=== PATIENT | female | born 1940 | race Caucasian/White ===

== ENCOUNTER 2018-10-10 22:16 | Emergency (ER) | payer MEDICARE ==
--- NOTE | 2018-10-10 22:34 | ED Physician Documentation ---
PD HPI OPHTHO - Stated complaint Stated Complaint: SOA/ANXIETY - Chief complaint Chief Complaint: General - History obtained from History obtained from: Patient - History of Present Illness Timing - onset: How many hours ago (1-2), Today Timing - duration: Hours (1-2) Timing - details: Abrupt onset (she was gardening and weeding and noted some feeling of irritation right eye. Considered that she got something in it. Irrigated eye with water. Has increasing redness and irritation of eye, then to left as well. [place] some dyspnea but was anxious too. No edema in throat nor tongue. No rash generally. Has not had URI symptoms.), Constant Location: Both (initially the right, but then both) Quality / character: Burning Associated symptoms: Redness, Tearing. No: Swelling, Discharge, FB sensation, Photophobia, Decreased vision Contributing factors: Other (not aware of chemical exposure but was doing gardening (no chemicals, sprays).). No: Wears contacts, Work related Review of Systems Constitutional: denies: Fever, Chills, Myalgias Eyes: reports: Irritation. denies: Photophobia, Discharge Nose: denies: Rhinorrhea / runny nose, Congestion Throat: denies: Sore throat Cardiac: denies: Chest pain / pressure Respiratory: reports: Dyspnea. denies: Cough, Wheezing GI: denies: Nausea, Vomiting Neurologic: denies: Headache PD PAST MEDICAL HISTORY - Past Medical History Cardiovascular: None Respiratory: None Neuro: None HEENT: None - Present Medications Home Medications: Ambulatory Orders Medication Instructions Recorded Confirmed Atorvastatin [Lipitor] 10 mg PO DAILY 10/10/18 10/10/18 Diclofenac Sodium 3 drops OP QID #1 bottle 10/10/18 Methotrexate 10/10/18 Prednisone 5 mg PO DAILY 10/10/18 10/10/18 - Allergies Allergies/Adverse Reactions: Allergies Allergy/AdvReac Type Severity Reaction Status Date / Time iodine AdvReac Hives Verified 10/10/18 22:26 PD ED PE NORMAL - Vitals Vital signs reviewed: Yes - General General: Alert and oriented X 3, Well developed/nourished, Other (very distressed due to eye pain. ) - HEENT HEENT: PERRL (very red/moderate swelling both lower conjunctiva. No FB seen. No discharge per se but is watering. ), EOMI - Neck Neck: Supple, no meningeal sign, No adenopathy - Cardiac Cardiac: RRR, No murmur - Respiratory Respiratory: Clear bilaterally - Derm Derm: Normal color, Warm and dry - Neuro Neuro: Alert and oriented X 3, No motor deficit, Normal speech Results - Vitals Vitals: Vital Signs - 24 hr 10/10/18 10/10/18 22:21 23:26 Temperature 37.5 C Heart Rate 75 78 Respiratory 16 16 Rate Blood Pressure 189/80 H 160/80 H O2 Saturation 98 100 Oxygen O2 Source Room air Departure - Departure Disposition: 01 Home, Self Care Clinical Impression: Conjunctivitis, acute Qualifiers: Acute conjunctivitis type: atopic Laterality: bilateral Qualified Code(s): H10.13 - Acute atopic conjunctivitis, bilateral Condition: Stable Record reviewed to determine appropriate education?: Yes Instructions: ED Allergic Conjunctivitis Prescriptions: Diclofenac Sodium 3 drops OP QID #1 bottle Comments: This would assumedly be an allergic or contact reaction of the eyes either to the plants you are gardening today or possibly the soap. Wash your hands with, etc. It does not look infectious per se and the timing would be unusual for infection. Use the ketotifen antihistamine eyedrops 4 times a day. You can add anti-infl ammatory eyedrops as well if this persists into tomorrow. Hopefully will be much improved and mostly better by then. Use the Proparacaine eye drops periodically overnight for discomfort as needed. Discharge Date/Time: 10/10/18 23:27
[2018-10-10] MEDS ORDERED: DEXAMETHASONE 10 MG/ML VIAL PO STA (22:49)
[2018-10-10] MEDS ORDERED: CHERRY SYRUP 10 ML UDC PO ONE (22:49)
[2018-10-10] MEDS ORDERED: diphenhydrAMINE 25 MG CAPSULE PO STA (22:49)
[2018-10-10] MEDS ORDERED: ACETAMINOPHEN 325 MG TABLET PO STA (22:49)
[2018-10-10 23:26] VITALS: BP 160/80
== END 2018-10-10 23:27 | disposition home or self-care (01) ==
LOC: ED 22:16
DX: H10.13 Acute atopic conjunctivitis, bilateral (principal)
CPT/HCPCS: 99282; 99284; A9270